=== PATIENT | male | born 1995 | race Caucasian/White ===

== ENCOUNTER 2017-02-20 04:17 | Emergency (ER) | payer OTHER ==
[2017-02-20 04:28] VITALS: TEMP 98.8
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
[2017-02-20 09:12] VITALS: BP 144/88; PULSE 84; RESP 20; O2SAT 100
== END 2017-02-20 09:10 | disposition home or self-care (01) ==
LOC: ED 04:17
DX: M54.2 Cervicalgia (principal); V49.9XXA Car occupant (driver) (passenger) injured in unspecified traffic accident, initial encounter; Y92.410 Unspecified street and highway as the place of occurrence of the external cause
CPT/HCPCS: 72125; 96372; 99284; J1885